=== PATIENT | female | born 1990 | race Caucasian/White ===

== ENCOUNTER 2020-05-15 13:35 | Outpatient (CLI) | payer BC, SELFPAY ==
--- NOTE | ~2020-05-15 | US_ITS ---
EXAMINATION: US thyroid DATE: 05/15/2020 14:10 INDICATION: Goiter. TECHNIQUE: Multiple ultrasound images of the thyroid were obtained. COMPARISON: None. FINDINGS: The right thyroid lobe measures 4.1 x 1.1 x 1.8 cm. The left thyroid lobe measures 3.0 x 0.8 x 1.7 c m. There is normal echotexture and echogenicity throughout the thyroid gland. No discrete nodules id entified. Normal vascular flow is present. IMPRESSION: 1. Normal thyroid. Reviewed, dictated and finalized at location B. LEVEL PROJECT MANAGER IMPRESSION: 1. Normal thyroid.
== END 2020-05-15 13:36 | disposition home or self-care (01) ==
PROVIDERS: PCP Family Medicine; Visit Provider Physician Assistant
DX: E01.0 Iodine-deficiency related diffuse (endemic) goiter (principal)
CPT/HCPCS: 76536

== ENCOUNTER → 2020-08-26 13:59 | Outpatient (CLI) | payer BC, SELFPAY ==
--- NOTE | ~2020-08-26 | US_ITS ---
EXAMINATION: US OB >= 14 weeks Fetus DATE: 08/26/2020 14:42 INDICATION: anatomic survey. TECHNIQUE: Real-time ultrasound of the pelvis was performed. COMPARISON: None. FINDINGS: There is a single living fetus in breech presentation. The placenta is anterior, 3.9 cm from the cer vix. heart rate is 143 beats per minute (bpm). The amniotic fluid volume is subjectively normal . The following biometric data were obtained: Biparietal diameter (BPD): 5.0 cm; head circumference (HC): 19.2 cm; abdominal circumference (AC): 17 .2 cm; femur length (FL): 3.5 cm. These measurements are concordant. Estimated weight is 436 g +/- 65 g, which correlates with 77th percentile when 01/06/21 is used a s estimated date of delivery. As single measurements, these parameters are each equal to the following estimated gestational ages w ith ranges of +/- 2 standard deviations: BPD: 21 weeks 2 days (19 weeks 4 days - 23 weeks 0 days). HC: 21 weeks 3 days (20 weeks 0 days - 23 weeks 0 days). AC: 22 weeks 1 days (20 weeks 1 days - 24 weeks 2 days). FL: 21 weeks 0 days (19 weeks 1 days - 22 weeks 5 days). estimated gestational age based solely on measurements from this exam is 21 weeks 3 days +/- 1 weeks 4 days. IMPRESSION: 1. Single living fetus in breech presentation. 2. Estimated weight is 436 g +/- 65 g, which correlates with 77th percentile when 01/06/21 is us ed as estimated date of delivery. 3. Normal anatomic survey. Reviewed, dictated and finalized at location A. SORTER IMPRESSION: 1. Single living fetus in breech presentation. 2. Estimated weight is 436 g +/- 65 g, which correlates with 77th percen tile when 01/06/21 is used as estimated date of delivery. 3. Normal anatomic survey.
== END ==
PROVIDERS: Visit Provider Obstetrics & Gynecology
DX: Z34.92 Encounter for supervision of normal pregnancy, unspecified, second trimester (principal); Z3A.21 21 weeks gestation of pregnancy
CPT/HCPCS: 76805

== ENCOUNTER 2020-12-05 08:51 | Observation (INO) | payer BC, SELFPAY ==
[2020-12-05 09:17] VITALS: BP 107/62; PULSE 111
[2020-12-05 09:20] VITALS: RESP 18; TEMP 36.4
[2020-12-05 09:24] VITALS: BMI 40.8
--- NOTE | 2020-12-05 09:25 | OBADM ---
This patient, Marina Amaral, admitted to the OB room [facility] Post 117 for observation. Patient/family oriented to hospital policies and general routines including ID bracelet, bed and alarms, visiting hours, pain management, procedures, bathroom and other care routines, personal items, smoking policy, room service/diet, and visiting hours. Patient/Family are encouraged to report perceived risks to care and to ask questions if they do not understand what they are told or what they should do.
[2020-12-05 09:32] VITALS: BP 96/48; PULSE 98
--- NOTE | 2020-12-10 07:17 | P.PNOB_ITS ---
OB - Triage/Final Diagnosis Visit Information Date of evaluation: 12/05/20 Reason for evaluation: threatened labor Comments/Additional reasons for admission: I have assessed the risk for this patient, Marina Amaral, and determined that she would benefit from o bservation care.
== END 2020-12-05 10:44 | disposition home or self-care (01) ==
PROVIDERS: Admitting Provider Obstetrics & Gynecology; PCP Family Medicine; Visit Provider Student in an Organized Health Care Education/Training Program
DX: O47.03 False labor before 37 completed weeks of gestation, third trimester (principal); Z3A.35 35 weeks gestation of pregnancy
CPT/HCPCS: G0378; G0379

== ENCOUNTER 2020-12-18 09:15 | Inpatient (IN) | payer BC, SELFPAY ==
[2020-12-18] VITALS (91 sets, daily range): BP systolic 71–141; BP diastolic 46–100; PULSE 37–166; RESP 16–18; TEMP 36.3–37.2; O2SAT 76–100; BMI 42.1
[2020-12-18 10:07] LABS: Basophils Percent Auto 0.3 % (0.2-1.2); Eosinophils Absolute Auto 0.1 K/mm3 (0-0.3); Eosinophils Percent Auto 0.5 % (0-4.4); Hematocrit 38.4 % (37.0-47.0); Hemoglobin 13.4 g/dL (12.0-15.0); Immature Granulocyte Absolute 0.06 K/mm3 (0.00-0.031); Immature Granulocyte Percent A 0.5 % (0-0.5); Lymphocytes Absolute Auto 2.28 K/mm3 (0.9-3.2); Lymphocytes Percent Auto 19.8 % (18.3-44.2); Mean Corpuscular HGB Conc 34.9 g/dl (32-36); Mean Corpuscular Hemoglobin 29.4 pg (26-34); Mean Corpuscular Volume 84.2 fl (80-100); Mean Platelet Volume 10.2 fl (7.4-10.4); Monocytes Absolute Auto 0.7 K/mm3 (0.1-0.6); Monocytes Percent Auto 5.8 % (2.6-8.5); Neutrophils Absolute Auto 8.4 K/mm3 (1.3-6.7); Neutrophils Percent Auto 73.1 % (45.5-73.1); Platelet Count Result 217 k/mm3 (150-375); Red Blood Count 4.56 M/mm3 (4.2-5.4); Red Cell Distribution Width 14.1 % (11.5-14.5); White Blood Count 11.5 K/mm3 (4.5-10.0)
--- NOTE | 2020-12-18 10:10 | LDADM ---
This patient, Marina Amaral, was admitted to Labor/Delivery/Recovery 105 on 12/18/20 at 09:15. Plans for labor, pain management and were discussed with patient. Patient/family oriented to hospital policies and general routines including ID bracelet, bed and alarms, visiting hours, pain management, procedures, bathroom and other care routines, personal items, smoking policy, room service/diet and guest tray routines, infant security routines, and visiting hours. Patient/Family are encouraged to report perceived risks to care and to ask questions if they do not understand what they are told or what they should do. See OBIX for further documentation.
--- NOTE | 2020-12-18 10:21 | WPDANESEPP ---
Anes - Eval Pre Procedure Procedure: labor epidural Date/Time: 12/18/20 10:21 Surgeon: komal serrano Pre Op Diagnosis: Ruptured Membranes Patient Data Age: 30 Gender: F Height: Weight: Last Vital Signs Pulse 112 H 12/18/20 10:15 BP 128/85 12/18/20 10:15 Allergies Allergy/AdvReac Type Severity Reaction Status Date / Time No Known Allergies Allergy Verified 12/10/20 12:37 Home Medications Medication Instructions Recorded Confirmed Type fluoxetine 20 mg capsule 60 mg PO DAILY #270 cap 05/12/20 12/18/20 Rx [id number] 1 tablet PO DAILY 12/05/20 12/18/20 History Laboratory Tests 12/18/20 12/18/20 09:58 09:58 WBC Pending RBC Pending Hgb Pending Hct Pending MCV Pending MCH Pending MCHC Pending RDW Pending Plt Count Pending MPV Pending Immature Gran % (Auto) Pending Neut % (Auto) Pending Lymph % (Auto) Pending [place] % (Auto) Pending Eos % (Auto) Pending Baso % (Auto) Pending Lymph # (Auto) Pending [place] # (Auto) Pending Eos # (Auto) Pending Baso # (Auto) Pending Abs Immat Gran (auto) Pending Absolute Neuts (auto) Pending Absolute Nucleated RBC Pending Nucleated RBC % Pending RPR Pending Patient hx anesthesia problems: none Family hx anesthesia problems: none PMFSH Family History Family History (Updated 12/10/20 @ 12:39 by Humera Arthur RN) Mother Diabetes mellitus Hypertension Family history of elevated blood lipids Father Family history of mental disorder Hypertension Skin cancer Grandparent Family history of malignant neoplasm of breast, Onset Age: 60 Family history of coronary artery disease Carcinoma of colon Diabetes mellitus Social History Social History Smoking status: Never smoker Alcohol intake: never Substance use: never Spiritual care concerns: No Exam Day of Procedure 12/18/20 10:21
[2020-12-18] MEDS: LACTATED RINGERS 1,000 ML 125 ML IV CONT ×2 (10:33→12:22)
[2020-12-18] MEDS: OXYTOCIN 30 UNITS/NS 500 ML 30 UNITS/500 ML BAG IV CONT (10:33)
--- NOTE | 2020-12-18 10:55 | PM.IMHP ---
H&P: HPI History of Present Illness Date/Time: 12/18/20 10:55 A 30-year-old 3 para 1 whose last menstrual period was 03/28/2020, EDC is 01/06/2021, presents confirmed by 6 week ultrasound presents at 37 and weeks gestation with spontaneous rupture membranes prior to admission. Her has been uncomplicated she did have a an abnormal diabetic screen but she was 3 or 4 normal on her 3hour and was controlled with sugars. She is negative for group B strep. Her blood pressure has been mildly elevated over the last couple visits and is mildly elevated now Chief Complaint: spontaneous rupture membranes at 37 and half weeks Review of Systems Review of Systems: All systems reviewed & are unremarkable except as noted in HPI and below PMFSH Family History Family History Mother Diabetes mellitus Hypertension Family history of elevated blood lipids Father Family history of mental disorder Hypertension Skin cancer Grandparent Family history of malignant neoplasm of breast, Onset Age: 60 Family history of coronary artery disease Carcinoma of colon Diabetes mellitus Social History Social History Smoking status: Never smoker Second hand tobacco smoke exposure: No Alcohol intake: never Substance use: never Spiritual care concerns: No Meds Home Medications and Allergies Home Medications Medication Instructions Recorded Confirmed Type fluoxetine 20 mg capsule 60 mg PO DAILY #270 cap 05/12/20 12/18/20 Rx [id number] 1 tablet PO DAILY 12/05/20 12/18/20 History Allergies Allergy/AdvReac Type Severity Reaction Status Date / Time No Known Allergies Allergy Verified 12/10/20 12:37 Vital Signs Vital Signs - 24 hr 12/18/20 10:00 12/18/20 10:15 12/18/20 10:30 Temperature 97.7 F Pulse Rate 107 H 112 H 106 H Blood Pressure 127/89 128/85 128/89 12/18/20 10:45 Temperature Pulse Rate 103 H Blood Pressure 123/91 H Exam Const: General: no acute distress Eyes: General: appearance normal, both eyes and all related structures Neck: Neck: supple and no JVD Thyroid: thyroid normal Resp: Effort & Inspection: normal respiratory effort Auscultation: clear to auscultation bilaterally Cardio: Rate: regular rate Rhythm: regular rhythm GI: Inspection: non-distended GI Palp: Yes Soft to palpation, No Tenderness to palpation present (GI) and No Guarding due to palpation present (GI) Auscultation: normal bowel sounds : External Female Exam: normal external appearance Speculum Exam - Vagina: normal appearance of the vagina Speculum Exam - Cervix: normal appearance of the cervix ( cervix . Clear fluid seen. FHTs reassuring) Skin: General skin exam: no rashes or lesions noted Extrem: General: normal to inspection and no edema Psych: Mental Status: mental status grossly normal Affect: normal affect H&P: Results Labs Labs: Short CBC 12/18/20 Range/Units 09:58 WBC 11.5 H (4.5-10.0) K/mm3 Hgb 13.4 (12.0-15.0) g/dL Hct 38.4 (37.0-47.0) % Plt Count 217 (150-375) k/mm3 Assessment and Plan Additional Plan impression: 37 half week with mildly elevated blood pressures and spontaneous rupture membranes Plan: Pitocin augmentation was begun. Spontaneous vaginal delivery is expected. She has an epidural candidate
[2020-12-18 11:17] LABS: Alanine Aminotransferase 12 U/L (4-35); Albumin Level 3.3 g/dL (3.5-5.1); Alkaline Phosphatase 182 U/L (38-126); Anion Gap 8 mmol/L (8-16); Aspartate Amino Transferase 19 U/L (14-36); Bilirubin,Total 0.6 mg/dL (0.2-1.3); Blood Urea Nitrogen 6 mg/dL (7-17); Calcium 8.8 mg/dL (8.4-10.2); Carbon Dioxide 18 mmol/L (22-30); Chloride 106 mmol/L (98-107); Estimated CRCL calculation 198 ml/min; Estimated Glomerular Filt Rate > 60; Glucose 104 mg/dL (65-105); Potassium 3.7 mmol/L (3.4-5.0); Sodium 132 mmol/L (137-145); Uric Acid 6.7 mg/dL (2.5-7.5)
[2020-12-18] MEDS: fentaNYL CITRATE INJ (*CRX) 100 MCG/2 ML VIAL IV PUSH (12:31)
--- NOTE | 2020-12-18 14:18 | PM.OBPRVD ---
OB - Delivery Note Procedure Delivery date: 12/18/20 events: Gestational Diabetes Intrapartal events: None Induction method: none Delivery augmentation: pitocin Delivery monitor: external FHT Route of delivery: Episiotomy description: None Laceration Description: None Specimen: No Quantitative Blood Loss (ml): 58 Disposition: [place] Date of : 12/18/20 Time of : 14:08 Weeks of gestation at delivery: 37 gender: Male presentation: vertex position: Right Occiput Anterior Placenta delivery description: Spontaneous cord vessel description: 3 Vessels, Nuchal Cord and Around Body x2
[2020-12-18] MEDS: OXYTOCIN 30 UNITS/NS 500 ML 30 UNITS/500 ML BAG 125 UNITS IV CONT (14:51)
[2020-12-18] MEDS: IBUPROFEN 600 MG TABLET PO (18:13)
[2020-12-18] MEDS: LANOLIN (LANSINOH) 7.5 GM CREAM 1 APPLIC TOPICAL (18:14)
--- NOTE | 2020-12-18 18:59 | PC.NURSE ---
1707 Pt admitted to room 282 per wheelchair from labor and delivery after vaginal delivery today at [address] Jesus Armstrong. Mother is a and is choosing to breast feed infant. /FOB present. Couple oriented to room, staffing and procedures. Admission folder reviewed including Mother-baby Guide. Pt's VSS and assessment WNL.
[2020-12-19] MEDS: IBUPROFEN 600 MG TABLET PO ×2 (00:58→10:06)
[2020-12-19 04:13] VITALS: BP 131/87; PULSE 84; RESP 18; TEMP 36.9
[2020-12-19 04:56] LABS: Hematocrit 33.8 % (37.0-47.0); Hemoglobin 11.4 g/dL (12.0-15.0)
[2020-12-19 07:30] VITALS: BP 133/93; PULSE 94; RESP 16; TEMP 36.5; O2SAT 99
[2020-12-19 08:24] LABS: Rapid Plasma Reagin Non-Reactive (NonReactive)
--- NOTE | 2020-12-19 08:52 | WPDANLDPN2 ---
Anes-Prog Note L&D Date/Time: 12/19/20 08:52 Comfortable throughout: labor and delivery Neuraxial method: epidural Epidural/Spinal procedure site: clean & non-tender Neuro status: Neuro function grossly intact. Cardiovascular status: normal Respiratory status: normal Airway patency: baseline Mental status: baseline Post-Op hydration status: normal Vital Signs: Last Vital Signs Temp 36.9 C 12/19/20 04:13 Pulse 84 12/19/20 04:13 Resp 18 12/19/20 04:13 BP 131/87 12/19/20 04:13 Pulse Ox 98 12/18/20 20:00 Pain score (VAS): 0 I/O: Intake & Output 12/18/20 12/19/20 12/19/20 23:59 07:59 15:59 Intake Total 1700 575 Output Total 575 1300 Balance 1125 -725 Post-procedural complaints: none Patient feedback: Patient satisfied with anesthetic care.
[2020-12-19 09:30] VITALS: PULSE 90; RESP 16; O2SAT 99
[2020-12-19] MEDS: FLUoxetine HCL 20 MG CAPSULE 60 MG PO (10:05)
[2020-12-19] MEDS: ACETAMINOPHEN 325 MG TABLET 650 MG PO (10:06)
[2020-12-19] MEDS: MULTIVIT/MIN/PREN/FOL AC/IRON TABLET 1 TAB PO (10:07)
[2020-12-19 12:05] VITALS: BP 129/79; PULSE 90; RESP 16; TEMP 36.9; O2SAT 99
[2020-12-19 16:57] VITALS: BP 144/94; PULSE 97; RESP 16; TEMP 36.9; O2SAT 97
[2020-12-19 20:25] VITALS: BP 125/87; PULSE 93; RESP 18; TEMP 36.4; O2SAT 100
[2020-12-20] VITALS (7 sets, daily range): BP systolic 126–146; BP diastolic 75–104; PULSE 90–113; RESP 16–20; TEMP 36.8–37.3; O2SAT 96–99
--- NOTE | 2020-12-20 09:05 | PM.OBPNVD ---
OB - PN: Subj Subjective Date/time seen: 12/20/20 09:05 Narrative: Pain OK. Would like to go home. OB - PN: Obj Data Labs CBC & Chem 7: 12/19/20 04:05 12/18/20 11:00 OB - PN A/P Plan Comments: A: PPD#2, doing well. P: Home to f/u 6 weeks. Exam Psych: Other: AVSS ABD soft, nontender, fundus firm EXT nontender
[2020-12-20] MEDS: MULTIVIT/MIN/PREN/FOL AC/IRON TABLET 1 TAB PO (09:41)
[2020-12-20] MEDS: FLUoxetine HCL 20 MG CAPSULE 60 MG PO (09:42)
[2020-12-20] MEDS: ACETAMINOPHEN 325 MG TABLET 650 MG PO (09:42)
[2020-12-20] MEDS: DOCUSATE SODIUM 100 MG CAPSULE PO (14:38)
--- NOTE | 2020-12-20 19:16 | PC.NURSE ---
1545Patient viewed the discharge video Mother & Baby Care, The First Two Weeks . Patient was given the opportunity and encouraged to ask questions. Patient verbalized understanding of information shared and has been given the mother/baby guide for home reference.
[2020-12-22 09:35] VITALS: BP 146/85; PULSE 92; RESP 20; TEMP 36.8; O2SAT 100
--- NOTE | 2020-12-23 06:45 | PM.DS ---
DS: Admitting Diagnosis Admitting Diagnosis Admitting Diagnosis: term iup/srom DS: Summary Hospital Course Hospital Course: unremaarkable couse Time Spent with Patient Time attestation: Total time spent providing and/or coordinating discharge services: Exam Const: General: no acute distress Eyes: General: appearance normal, both eyes and all related structures Neck: Neck: supple and no JVD Thyroid: thyroid normal Resp: Effort & Inspection: normal respiratory effort Auscultation: clear to auscultation bilaterally Cardio: Rate: regular rate Rhythm: regular rhythm GI: Inspection: non-distended GI Palp: Yes Soft to palpation, No Tenderness to palpation present (GI) and No Guarding due to palpation present (GI) Auscultation: normal bowel sounds : General: Yes bladder normal to palpation External Female Exam: normal external appearance Speculum Exam - Vagina: normal vaginal discharge and No vaginal bleeding Speculum Exam - Cervix: nontender Bimanual exam- vagina & uterus: bladder normal to palpation and No Cervical tenderness present OB/external & speculum: No vaginal bleeding Skin: General skin exam: no rashes or lesions noted Extrem: General: normal to inspection and no edema Psych: Mental Status: mental status grossly normal Affect: normal affect Discharge Plan Discharge Attending physician on discharge: Delbert Galvan Discharging Clinician: Brandt Haddad Patient Disposition: Home, Self-Care Activity: pelvic rest Diet: regular Discharge Instructions: Education: Mom and Baby Guide Given to: Mother Follow-Up: Call your delivering provider's office for an appointment to be seen in: 6 Weeks Mom and baby should come to the [facility] for the follow-up appointment. Appointment Date/Time: Tuesday, December 22, 2020 at 9:00 am Call [phone] if you are unable to keep your appointment time. BREAST CARE: * Wear a snug supportive bra. * For engorgement discomfort: Breast Feeding: * Apply warm moist washcloths * Express milk as needed to relieve engorgement * Wear loose clothing Bottle Feeding: * May apply ice packs * For sore nipples: * Identify correct latch-on * Apply warm moist washcloths before and after nursing * Air dry nipples after nursing * May apply Lansinoh cream to nipples EPISIOTOMY/PERINEAL CARE: * Until bleeding stops, use your le bottle after urinating * Change your pad frequently throughout the day * You may take sitz baths several times a day (fill your bathtub with warm water and soak for 20 minutes.) Do NOT bathe in the water * No tub baths until seen by your physician - You may shower ACTIVITY: * Rest as much as possible. * Do not exercise or lift anything heavier than your baby (such as laundry or other children.) * Avoid stairs or driving as much as possible. * Do not put anything into the vagina. No douching, tampons, or sexual activity until seen by physician. NOTIFY PHYSICIAN IF YOU HAVE ANY QUESTIONS OR IF ANY OF THE FOLLOWING SYMPTOMS OCCUR: * If your episiotomy or incision becomes red, swollen, or more painful than what you have experienced in the hospital. * If your vaginal bleeding becomes foul smelling. * If your vaginal bleeding becomes more heavy than a period or if your bleeding changes from pink to bright red. However, you may pass an occasional walnut-sized clot once or twice for the first week . * If you experience a sharp, shooting pain in you calves. * If you discover a hard, reddened area on your breast or if you experience flu-like symptoms. DIET: * Eat regular, well-balanced meals. * Drink plenty of fluids daily. If , drink to thirst. Per Dr. Haddad, Call or return if temperature above 100.4? F, increased abdominal pain, increased vaginal bleeding or any new problems. Fol
== END 2020-12-20 19:50 | disposition home or self-care (01) | DRG 807 ==
LOC: ANHOB2 12-20 18:14 → ANHLDR 12-23 07:03 → ANHOB2 12-23 07:03
PROVIDERS: Admitting Provider Obstetrics & Gynecology; PCP Family Medicine; Visit Provider Obstetrics & Gynecology
DX: O69.81X0 Labor and delivery complicated by cord around neck, without compression, not applicable or unspecified (principal); Z37.0 Single live birth; O13.4 Gestational [pregnancy-induced] hypertension without significant proteinuria, complicating childbirth; O77.0 Labor and delivery complicated by meconium in amniotic fluid; Z3A.37 37 weeks gestation of pregnancy
CPT/HCPCS: 36415; 80053; 84112; 84550; 85014; 85018; 85025; 86592; 86850; 86900; 86901; A9270; J2590; J2795; J3010; J7120